=== PATIENT | female | born 1950 | race Caucasian/White ===

== ENCOUNTER 2022-04-12 10:45 | Outpatient (CLI) | payer MEDICARE | END 2022-04-12 10:46 | disposition home or self-care (01) | LOC: LABBT 10:45 | PROVIDERS: ATTEND Neurological Surgery | DX: Z01.818 Encounter for other preprocedural examination (principal); M48.061 Spinal stenosis, lumbar region without neurogenic claudication; U07.1 COVID-19 | CPT/HCPCS: 93005; U0003; U0005; 93010 ==

== ENCOUNTER 2022-05-15 05:50 | Day surgery (SDC) | payer MEDICARE ==
[2022-05-13 12:39] VITALS: BMI 29.9
[2022-05-15] MEDS ORDERED: EPINEPHrine 1 MG/ML AMP ONE (06:10)
[2022-05-15] MEDS ORDERED: Thrombin 5000 UNITS/5 ML VIAL ONE (06:10)
[2022-05-15] MEDS ORDERED: Bupivacaine PF 0.5% 30 ML VIAL ONE (06:10)
[2022-05-15] MEDS ORDERED: fentaNYL Citrate/PF 100 MCG/2 ML SYRINGE ONE (06:27)
[2022-05-15] MEDS ORDERED: SUGAMMADEX SODIUM 200 MG/2 ML VIAL ONE (06:27)
[2022-05-15] MEDS ORDERED: CEFAZOLIN 2 GM VIAL ONE ×2 (06:44→11:07)
[2022-05-15] MEDS ORDERED: Sodium Chloride 0.9% 100 ML ONE ×2 (06:44→11:07)
[2022-05-15] MEDS ORDERED: Phenylephrine 10 MG/ML VIAL ONE (07:05)
[2022-05-15] MEDS ORDERED: Ondansetron PF 4 MG/2 ML Vial ONE (07:05)
[2022-05-15] MEDS ORDERED: Lidocaine 1% PF 5 ML VIAL ONE (07:05)
[2022-05-15] MEDS ORDERED: Rocuronium Bromide 10 MG/ML (10ML VIAL) ONE (07:05)
[2022-05-15] MEDS ORDERED: PROPOFOL 200 MG/20 ML VIAL ONE (07:05)
[2022-05-15] MEDS ORDERED: Dexamethasone 20 MG/5 ML VIAL ONE (07:05)
[2022-05-15] MEDS ORDERED: Glycopyrrolate 0.2 MG/ML 5 ML SYRINGE ONE (07:05)
[2022-05-15] MEDS ORDERED: HYDROcodone/Acetaminophen 5/325 mg Tablet ONE (10:02)
== END 2022-05-15 12:02 | disposition home or self-care (01) ==
LOC: SDC 05:50
PROVIDERS: ATTEND Neurological Surgery
PROC: 01NB0ZZ Release Lumbar Nerve, Open Approach (ICD-10-PCS; principal; 2022-05-15)
DX: M48.062 Spinal stenosis, lumbar region with neurogenic claudication (principal); M54.16 Radiculopathy, lumbar region; I10 Essential (primary) hypertension; Z79.899 Other long term (current) drug therapy
CPT/HCPCS: 76000; J0171; J0690; J1100; J2370; J2405; J2704; J2710; J3490; S0020